=== PATIENT | female | born 1955 | race Caucasian/White ===

== ENCOUNTER → 2016-12-04 | Outpatient (CLI) | payer BC ==
--- NOTE | 2016-12-05 11:25 | MM ---
Reason for exam: screening (asymptomatic). Last mammogram was performed 2 years and 8 months ago. History: Patient is postmenopausal. Took estrogen for 2 years 7 months. Took progesterone for 2 years 7 months. Physical Findings: A clinical breast exam by your physician is recommended on an annual basis and results should be correlated with mammographic findings. MG Screening Mammo w CAD Bilateral CC and MLO view(s) were taken. Prior study comparison: April 04, 2014, bilateral MG screening mammo w CAD. September 21, 2012, mammogram, performed at [facility]. The breast tissue is heterogeneously dense. This may lower the sensitivity of mammography. Finding: There are typically benign dystrophic, round calcifications in the left breast. Developing asymmetry left middle depth inferior aspect. ASSESSMENT: Incomplete: need additional imaging evaluation, BI-RAD 0 RECOMMENDATION: Special view mammogram of the left breast. [facility] will attempt to contact patient to return for supplemental views.
== END | disposition home or self-care (01) ==
LOC: RADMAMWWP 16:41
PROVIDERS: ATTEND Family Medicine
DX: Z12.31 Encounter for screening mammogram for malignant neoplasm of breast (principal)

== ENCOUNTER → 2016-12-10 | Outpatient (CLI) | payer BC ==
--- NOTE | 2016-12-10 10:40 | MM ---
Reason for exam: additional evaluation requested from abnormal screening. Last mammogram was performed less than 1 month ago. History: Patient is postmenopausal. Took estrogen for 2 years 7 months. Took progesterone for 2 years 7 months. Physical Findings: Nurse did not find any significant physical abnormalities on exam. MG Work Up Mamm w CAD LT Spot compression CC, spot compression MLO, and ML view(s) were taken of the left breast. Prior study comparison: December 04, 2016, bilateral MG screening mammo w CAD. April 04, 2014, bilateral MG screening mammo w CAD. The breast tissue is heterogeneously dense. This may lower the sensitivity of mammography. Asymmetric nodular density persists on ML/MLO views, 6.5cm from nipple. Ultrasound is recommended. These results were verbally communicated with the patient and result sheet given to the patient on 12/10/16. ASSESSMENT: Incomplete: need additional imaging evaluation, BI-RAD 0 RECOMMENDATION: Ultrasound of the left breast.
--- NOTE | 2016-12-10 10:43 | USB ---
Reason for exam: additional evaluation requested from abnormal screening. History: Patient is postmenopausal. Took estrogen for 2 years 7 months. Took progesterone for 2 years 7 months. US Breast Workup Limited LT Left breast ultrasound demonstrates no cystic or solid lesion seen. No abnormality seen on ultrasound however given mammographic appearance tissue biopsy is recommended. These results were verbally communicated with the patient and result sheet given to the patient on 12/10/16. ASSESSMENT: Suspicious, BI-RAD 4 RECOMMENDATION: Stereotactic core biopsy of the left breast. Called Dr. Chambers with mammographic findings and has scheduled an appointment for the patient for 01/08/17 at 4:[address] Prado. Biposy scheduled for 12/18/16 at 10:00. PRELIMINARY REPORT CALLED AND FAXED TO DR. PRADO ON 12/10/16.
== END | disposition home or self-care (01) ==
LOC: RADMAMWWP 07:40
PROVIDERS: ATTEND Family Medicine
DX: R92.8 Other abnormal and inconclusive findings on diagnostic imaging of breast (principal)
CPT/HCPCS: 76642; G0206

== ENCOUNTER → 2016-12-18 | Day surgery (SDC) | payer BC ==
[2016-12-18 09:56] VITALS: BP 105/67; PULSE 68; RESP 16; TEMP 97.5; BMI 34.3
--- NOTE | 2016-12-18 12:24 | MM ---
EXAMINATION TYPE: MG discontinued stereo core LT DATE OF EXAM: 12/18/2016 COMPARISON: Mammogram December 10, 2016 and older studies. CLINICAL HISTORY: Abnormal mammogram TECHNIQUE: Stereotactic guided core biopsy of left breast. FINDINGS: The procedure of stereotactic guided core biopsy was explained to the patient. Benefits, a lternatives, and risks were discussed. An informed consent was then obtained. Case is reviewed prior to procedure. Preprocedure medication for anxiety was given. Lesion is not see n on CC or spot CC views. There is possible lesion on true lateral and MLO views. The lateral approac h had to be attempted. Multiple attempts to localize the lesion were performed, area of concern dispe rsed on spot imaging. It was explained to patient that no suspicious lesion persisted to warrant biop sy currently. This was pretty confident based on negative ultrasound and not definitive lesion seen o n background of dense tissue on mammogram. Patient was agreeable to cancel biopsy and do short-term d iagnostic follow-up. IMPRESSION: UNSUCCESSFUL, UNCOMPLICATED ATTEMPTED STEREOTACTIC GUIDED CORE BIOPSY OF AREA OF CONCERN IN THE LEFT BREAST. BI-RADS 3 PROBABLE BENIGN FINDINGS. RECOMMENDATION: PRECAUTIONARY 6 MONTH FOLLOW-UP DIAGNOSTIC LEFT BREAST MAMMOGRAM.
== END ==
LOC: RADMAMWWP 09:34
PROVIDERS: ATTEND Surgery
DX: R92.8 Other abnormal and inconclusive findings on diagnostic imaging of breast (principal); Z53.8 Procedure and treatment not carried out for other reasons

== ENCOUNTER 2016-12-20 08:28 | Day surgery (SDC) | payer BC ==
[2016-12-18 14:53] VITALS: BMI 36.0
[~2016-12-20 08:28] MED LIST: LACTATED RINGERS 1,000 ML IV SCH; LIDOCAINE 1% 20 ML VIAL (10MG/ML) FOR IV START INTRADERMA PRN
[2016-12-20 08:55] VITALS: RESP 16; TEMP 97.9
[2016-12-20] MEDS ORDERED: PROPOFOL 10 MG/ML 20 ML VIAL IV ONE (09:59)
--- NOTE | 2016-12-20 10:18 | P.PCN ---
Date of Procedure: 12/20/16 Procedure(s) Performed: BRIEF HISTORY: Patient is a 61-year-old [place] female, scheduled for an elective colonoscopy as a part of evaluation of prior history of colon polyps. PROCEDURE PERFORMED: Colonoscopy with snare polypectomy. PREOPERATIVE DIAGNOSIS: History of Colon polyps. IV sedation per Anesthesia. PROCEDURE: After informed consent was obtained, the patient, was brought into the endoscopy unit. IV sedation was administered by Anesthesia under continuous monitoring. Digital rectal examination was normal. Initially the Olympus CF- 160 flexible video colonoscope was then inserted in the rectum, gradually advanced into the cecum without any difficulty. Careful examination was performed as the scope was gradually being withdrawn. Ileocecal valve and the appendiceal orifice were visualized and appeared normal. Prep was excellent. Mucosa of the cecum, ascending colon, transverse colon, descending colon, sigmoid colon, and rectum appeared normal. 5 mm descending colon polyp seen which was removed by snare polypectomy. Scattered sigmoid diverticulosis noted. Retroflexion was performed in the rectum and no lesions were seen. The patient tolerated the procedure well. IMPRESSION: 5 mm descending colon polyp status post polypectomy Scattered sigmoid diverticulosis. RECOMMENDATIONS: Findings of this examination were discussed with the patient as well as a family. She was advised to follow with the biopsy results. If the biopsy shows a tubular adenoma she can have a repeat colonoscopy in 5 years
[2016-12-20 10:38] VITALS: BP 123/70; PULSE 61
== END 2016-12-20 10:57 | disposition home or self-care (01) ==
LOC: ORWHC2ENDO 08:28
PROVIDERS: ATTEND Internal Medicine Gastroenterology
DX: Z12.11 Encounter for screening for malignant neoplasm of colon (principal); Z86.010 Personal history of colon polyps; K57.30 Diverticulosis of large intestine without perforation or abscess without bleeding; J45.909 Unspecified asthma, uncomplicated; F39 Unspecified mood [affective] disorder; Z79.899 Other long term (current) drug therapy; Z88.5 Allergy status to narcotic agent; Z88.0 Allergy status to penicillin; Z88.8 Allergy status to other drugs, medicaments and biological substances; Z87.891 Personal history of nicotine dependence
CPT/HCPCS: 88305; 45385; J2704

== ENCOUNTER → 2022-10-18 | Outpatient (CLI) | payer BC ==
[2022-10-19 06:21] LABS: Alternaria alternata IgE <0.10 kU/L; Aspergillus fumagatus IgE <0.10 kU/L; Birch IgE <0.10 kU/L; Cat Epith & Dander IgE <0.10 kU/L; Cladosporian herbarum IgE <0.10 kU/L; Cockroach IgE <0.10 kU/L; Dermato. farinae IgE <0.10 kU/L; Dog Dander IgE <0.10 kU/L; Maple (Box Elder) IgE <0.10 kU/L; Oak IgE <0.10 kU/L; Ragweed,Common IgE <0.10 kU/L
== END | disposition home or self-care (01) ==
LOC: LABWHC1 15:02
PROVIDERS: ATTEND Otolaryngology
DX: J30.89 Other allergic rhinitis (principal)
CPT/HCPCS: 36415; 82785; 86003

== ENCOUNTER 2024-01-12 18:21 | Emergency (ER) | payer MEDICARE ==
--- NOTE | 2024-01-12 18:43 | ED ---
General Adult HPI - General Source: patient, RN notes reviewed Mode of arrival: wheelchair Limitations: no limitations <Amina Holm - Last Filed: 01/12/24 18:42> <Corie Real - Last Filed: 01/13/24 03:16> - General Chief complaint: Psychiatric Symptoms Stated complaint: Weakness Time Seen by Provider: 01/12/24 18:38 - History of Present Illness Initial comments: Quick [id number] female history of anxiety depression presents emergency department with severe anxiety. States that she has been taking 0.25 grams of Xanax and as needed throughout the day with no relief in symptoms. States that she is shaky and severely depressed. (Amina Holm) 68-year-old female presents emergency department reporting severe anxiety. States that she has a history of anxiety and follows with her primary care doctor. She has her on Xanax and Prozac. She states that ever since she start ed Prozac in November that her symptoms have gotten progressively worse. Because of that she wants to come off of the Prozac and her primary care doctor has been tapering her off of it. Over the past 5 days she has had to take Xanax because her depressive thoughts have been so significant. She states that the "depressive pain is so bad". States that she cannot take it anymore. Reports that she does not want to go home because she does not feel safe with herself. She admits to shakiness, nausea. Does report that Xanax does help her symptoms. She has never been hospitalized. Denies homicidal ideations. No other alleviating, precipitating or modifying factors (Corie Real) - Related Data Home Medications Medication Instructions Recorded Confirmed ALPRAZolam [Xanax] 1 tab PO Q12HR 12/11/16 12/18/16 Fexofenadine HCl [[place]ie Allergy] 1 tab PO DAILY 12/11/16 12/18/16 Fluticasone Nasal [place] [Flonase 50 mcg NASAL DAILY 12/11/16 12/18/16 Nasal [place]] Previous Rx's Medication Instructions Recorded ALPRAZolam [Xanax] 0.5 mg PO TID PRN #9 tablet 01/13/24 Allergies Allergy/AdvReac Type Severity Reaction Status Date / Time albuterol Allergy Anaphylaxis Verified 01/12/24 18:29 codeine Allergy Swelling Verified 12/20/16 08:47 corn Allergy Anaphylaxis Verified 01/12/24 18:29 Penicillins Allergy Anaphylaxis Verified 12/20/16 08:47 tetracycline Allergy Anaphylaxis Verified 01/12/24 18:29 DUST Allergy Unknown Uncoded 12/18/16 14:45 Review of Systems ROS Other: All systems not noted in ROS Statement are negative. <Amina Holm - Last Filed: 01/12/24 18:42> ROS Other: All systems not noted in ROS Statement are negative. <Kishan Realah Isaiah - Last Filed: 01/13/24 03:16> ROS Statement: Those systems with pertinent positive or pertinent negative responses have been documented in the HPI. Past Medical History Past Medical History: Asthma Additional Past Medical History / Comment(s): HX MICHAEL CLARK, STATES HAS HAD 4 ANAPHYLACTIC EPISODES IN PAST YEAR-ALLERGY TO MANY PRESERVATIVES PER PT. NO CURRENT MEDS FOR ASTHMA PER PT History of Any Multi-Drug Resistant Organisms: None Reported Past Surgical History: Cholecystectomy, Hysterectomy Additional Past Surgical History / Comment(s): URETER REPAIR SECONDARY TO HYSTERECTOMY. Past Anesthesia/Blood Transfusion Reactions: No Reported Reaction Past Psychological History: Anxiety, Depression Past Alcohol Use History: None Reported Past Drug Use History: None Reported <Amina Holm - Last Filed: 01/12/24 18:42> General Exam Limitations: no limitations <Amina Holm - Last Filed: 01/12/24 18:42> General appearance: alert, anxious, in distress Head exam: Present: atraumatic, normocephalic, normal inspection Eye exam: Present: normal appearance, PERRL, EOMI. Absent: scleral icterus, conjunctival injection, periorbital swelling ENT exam: Present: normal exam, mucous membranes moist Neck exam: Present: normal inspection. Absent: tenderness, meningismus, lymphadenopathy Respiratory exam: Present: normal lung sounds bilaterally. Absent: respiratory distress, wheezes, rales, rhonchi, stridor Cardiovascular Exam: Present: regular rate, normal rhythm, normal heart sounds. Absent: systolic murmur, diastolic murmur, rubs, gallop, clicks GI/Abdominal exam: Present: soft, normal bowel sounds. Absent: distended, tenderness, guarding, rebound, rigid Extremities exam: Present: normal inspection, full ROM, normal capillary refill. Absent: tenderness, pedal edema, joint swelling, calf tenderness Back exam: Present: normal inspection Neurological exam: Present: alert, oriented X3, CN II-XII intact Psychiatric exam: Present: anxious, suicidal ideation Skin exam: Present: warm, dry, intact, normal color. Absent: rash <Corei Real - Last Filed: 01/13/24 03:16> - General Exam Comments Initial Comments: Visual Physical Exam Vital signs reviewed General: Well-appearing, nontoxic, no acute distress. Head: Normocephalic, atraumatic Eyes: PERRLA, EOMI ENT: Airway patent Chest: Nonlabored breathing Skin: No visual rash, normal skin tone Neuro: Alert and oriented 3 Musculoskeletal: No gross abnormalities (Amina Holm) Course Vital Signs 01/12/24 01/13/24 18:25 01:55 Temperature 98.6 F 98.4 F Pulse Rate 88 86 Respiratory 16 18 Rate Blood Pressure 135/87 136/88 O2 Sat by Pulse 98 97 Oximetry Medical Decision Making <Amina Holm - Last Filed: 01/12/24 18:42> <Corie Real - Last Filed: 01/13/24 03:16> - Medical Decision Making I completed the quick note portion of this chart signed Amina Holm PA-C (Amina Holm) Was pt. sent in by a medical professional or institution (KYLE Garcia, QUICK PRINT OPERATOR, urgent care, hospital, or penitentiary...) When possible be specific @ -No Did you speak to anyone other than the patient for history (EMS, parent, family, police, friend...)? What history was obtained from this source @ -Spoke with the for history Did you review nursing and triage notes (agree or disagree)? Why? @ -I reviewed and agree with nursing and triage notes Were old charts reviewed (outside hosp., previous admission, EMS record, old EKG, old radiological studies, urgent care reports/EKG's, penitentiary records)? Report findings @ -No old charts were reviewed Differential Diagnosis (chest pain, altered mental status, abdominal pain women, abdominal pain men, vaginal bleeding, weakness, fever, dyspnea, syncope, headache, dizziness, GI bleed, back pain, seizure, CVA, palpatations, mental health, musculoskeletal)? @ -Differential Mental Health Depression, anxiety, bipolar, psychosis, schizophrenia, borderline personality, situational depression, adjustment disorder, behavioral disorder, brain tumor, malingering, substance abuse, encephalopathy, medication reaction, dementia, hypothyroidism, degenerative neurologic disorder, lupus.... This is not meant to be all-inclusive list EKG interpreted by me (3pts min.). @ -Not done X-rays interpreted by me (1pt min.). @ -None done CT interpreted by me (1pt min.). @ -None done U/S interpreted by me (1pt. min.). @ -None done What testing was considered but not performed or refused? (CT, X-rays, U/S, labs)? Why? @ -None What meds were considered but not given or refused? Why? @ -None Did you discuss the management of the patient with other professionals (professionals i.e. , PA, QUICK PRINT OPERATOR, lab, RT, psych nurse, social professionals, ramp attendant, teacher, air antisubmarine officer, case liner)? Give summary @ -Spoke with the EPS nurse who does evaluate the patient Was smoking cessation discussed for >3mins.? @ -No Was critical care preformed (if so, how long)? @ -No Were there social determinants of health that impacted care today? How? (Homelessness, low income, unemployed, alcoholism, drug addiction, transportation, low edu. Level, literacy, decrease access to med. care, care home, rehab)? @ -No Was there de-escalation of care discussed even if they declined (Discuss DNR or withdrawal of care, Hospice)? DNR status @ -No What co-morbidities impacted this encounter? (DM, HTN, Smoking, COPD, CAD, Cancer, CVA, ARF, Chemo, Hep., AIDS, mental health diagnosis, sleep apnea, morbid obesity)? @ -Anxiety Was patient admitted / discharged? Hospital course, mention meds given and route, prescriptions, significant lab abnormalities, going to OR and other pertinent info. @ -Upon arrival patient seen and evaluated in room 18. Thorough history and physical exam was performed. EPS does evaluate the patient. Does not feel the patient would fare well on the mental health floor as this would likely exacerbate her symptoms. Patient did respond to the Xanax well. I will write her prescription for stronger dose. She is to follow-up with her primary care doctor for further management and return for any new or worsening symptoms. Patient is agreeable if her symptoms do not improve that she will come back. Undiagnosed new problem with uncertain prognosis? @ -No Drug Therapy requiring intensive monitoring for toxicity (Heparin, Nitro, Insulin, Cardizem)? @ -No Were any procedures done? @ -No Diagnosis/symptom? @ -Acute anxiety/depression Acute, or Chronic, or Acute on Chronic? @ -Acute on chronic Uncomplicated (without systemic symptoms) or Complicated (systemic symptoms)? @ -Complicated Side effects of treatment? @ -No Exacerbation, Progression, or Severe Exacerbation? @ -No Poses a threat to life or bodily function? How? (Chest pain, [place], [place], pneumonia, PE, COPD, DKA, ARF, appy, cholecystitis, CVA, Diverticulitis, Homicidal, Suicidal, threat to staff... and all critical care pts) @ -No (Corie Real) Disposition <Amina Holm - Last Filed: 01/12/24 18:42> Is patient prescribed a controlled substance at d/c from ED?: Yes When asked, does pt state using other controlled substances?: No If prescribed controlled substance>3 days was MAPS reviewed?: Prescribed <3 Days Time of Disposition: 01:35 <Corie Real - Last Filed: 01/13/24 03:16> Clinical Impression: Acute anxiety Disposition: HOME SELF-CARE Condition: Stable Instructions (If sedation given, give patient instructions): Anxiety (ED) Additional Instructions: Please use the Xanax sparingly as needed up to 3 times a day. Follow-up with your doctor and return for any new or worsening symptoms Prescriptions: ALPRAZolam [Xanax] 0.5 mg PO TID PRN #9 tablet PRN Reason: Anxiety Referrals: Beverly Morel DO [Primary Care Provider] - 1-2 days
[2024-01-12] MEDS ORDERED: LORazepam 1 MG TAB PO STA (22:26)
[2024-01-12] MEDS: ALPRAZolam 0.5 MG TAB PO STA (22:59)
[2024-01-13] MEDS: ALPRAZolam 0.5 MG TAB PO STA (01:54)
[2024-01-13 01:57] VITALS: BP 136/88; PULSE 86; RESP 18; TEMP 98.4
== END 2024-01-13 01:56 | disposition home or self-care (01) ==
LOC: EC 18:21
CPT/HCPCS: 82075; 99285

== ENCOUNTER → 2024-01-15 | Outpatient (CLI) | payer MEDICARE ==
[2024-01-15 16:36] LABS: Basophils # (A) 0.05 X 10*3/uL (0.00-0.10); Eosinophils # (A) 0.04 X 10*3/uL (0.04-0.35); Eosinophils % (A) 0.8 %; HCT 46.2 % (37.2-46.3); HGB 14.7 g/dL (12.0-15.0); Lymphocytes # (A) 0.91 X 10*3/uL (0.90-5.00); Lymphocytes % (A) 18.2 %; MCH 28.9 pg (27.0-32.0); MCHC 31.8 g/dL (32.0-37.0); MCV 90.9 FL (80.0-97.0); Mean Platelet Volume 10.1 FL (9.5-12.2); Monocytes # (A) 0.45 X 10*3/uL (0.20-1.00); NRBC Per 100 WBC 0 X 10*3/uL (0.00-0.01); Neutrophils # (A) 3.53 X 10*3/uL (1.80-7.70); Neutrophils % (A) 70.8 %; Platelet Count 324 X 10*3/uL (140-440); RBC 5.08 X 10*6/uL (4.10-5.20); RDW 13.3 % (11.5-14.5); WBC 4.99 X 10*3/uL (4.50-10.00)
[2024-01-15 17:11] LABS: ALT 13 U/L (8-44); AST 15 U/L (13-35); Albumin 4.1 g/dL (3.8-4.9); Albumin/Globulin Ratio 1.86 Ratio (1.60-3.17); Alkaline Phosphatase 73 U/L (41-126); Blood Urea Nitrogen 13.3 mg/dL (9.0-27.0); Calcium 9.3 mg/dL (8.7-10.3); Carbon Dioxide 27.1 mmol/L (21.6-31.8); Chloride 104 mmol/L (96-109); Globulin 2.2 g/dL (1.6-3.3); Glucose 101 mg/dL (70-110); Potassium 4.5 mmol/L (3.5-5.5); Sodium 141 mmol/L (135-145); Total Bilirubin 0.3 mg/dL (0.3-1.2); Total Protein 6.3 g/dL (6.2-8.2)
== END | disposition home or self-care (01) ==
LOC: LABWHC1 11:43
PROVIDERS: ATTEND Family Medicine
DX: F41.1 Generalized anxiety disorder (principal)
CPT/HCPCS: 36415; 80053; 82306; 82607; 83036; 83735; 84443; 85025

== ENCOUNTER 2024-02-02 23:17 | Emergency (ER) | payer MEDICARE ==
[2024-02-02 23:21] VITALS: RESP 18; TEMP 97.7
[2024-02-02] MEDS: diphenhydrAMINE 50 MG/ML 1 ML VIAL IVP STA (23:53)
[2024-02-02] MEDS: FAMOTIDINE 20 MG/2 ML VIAL IV STA (23:54)
[2024-02-02] MEDS: ALPRAZolam 0.25 MG TAB PO STA (23:55)
--- NOTE | 2024-02-03 01:23 | ED ---
Allergic Reaction HPI - General Chief complaint: Allergic Reaction Stated complaint: Allergic Reaction Time Seen by Provider: 02/02/24 23:24 Source: patient Mode of arrival: ambulatory Limitations: no limitations - History of Present Illness Initial Comments: This patient is a 68-year-old woman presents with complaint that she believes she is having a reaction to taking new antidepressant. Patient states that she was given Zoloft for some mild anxiety and depression. She denies suicidal ideation. She states that after she took this she started having severe anxiety. She has tingling around her mouth and fingertips. She has tremor. No chest pain. No nausea or vomiting. No rash MD Complaint: other -: hour(s) Exposure: medication Symptoms: other Severity: moderate Treatment Prior to Arrival: none Previous Allergy History: none - Related Data Home Medications Medication Instructions Recorded Confirmed ALPRAZolam [Xanax] 1 tab PO Q12HR 12/11/16 12/18/16 Fexofenadine HCl [Dixie Allergy] 1 tab PO DAILY 12/11/16 12/18/16 Fluticasone Nasal Tensed [Flonase 50 mcg NASAL DAILY 12/11/16 12/18/16 Nasal Tensed] Previous Rx's Medication Instructions Recorded ALPRAZolam [Xanax] 0.5 mg PO TID PRN #9 tablet 01/13/24 Allergies Allergy/AdvReac Type Severity Reaction Status Date / Time albuterol Allergy Anaphylaxis Verified 02/02/24 23:21 codeine Allergy Swelling Verified 02/02/24 23:21 corn Allergy Anaphylaxis Verified 02/02/24 23:21 fluoxetine [From Prozac] Allergy Unknown Verified 02/02/24 23:21 hydroxyzine Allergy Unknown Verified 02/02/24 23:21 Penicillins Allergy Anaphylaxis Verified 02/02/24 23:21 tetracycline Allergy Anaphylaxis Verified 02/02/24 23:21 DUST Allergy Unknown Uncoded 02/02/24 23:21 Review of Systems ROS Statement: Those systems with pertinent positive or pertinent negative responses have been documented in the HPI. ROS Other: All systems not noted in ROS Statement are negative. Constitutional: Denies: fever, chills Eyes: Denies: eye discharge ENT: Denies: congestion Respiratory: Denies: cough, dyspnea Cardiovascular: Denies: chest pain, palpitations Gastrointestinal: Denies: abdominal pain, nausea, vomiting, diarrhea Skin: Denies: rash Neurological: Denies: headache, weakness Psychiatric: Reports: anxiety Past Medical History Past Medical History: Asthma Additional Past Medical History / Comment(s): HX MICHAEL CLARK, STATES HAS HAD 4 ANAPHYLACTIC EPISODES IN PAST YEAR-ALLERGY TO MANY PRESERVATIVES PER PT. NO CURRENT MEDS FOR ASTHMA PER PT History of Any Multi-Drug Resistant Organisms: None Reported Past Surgical History: Cholecystectomy, Hysterectomy Additional Past Surgical History / Comment(s): URETER REPAIR SECONDARY TO HYSTERECTOMY. Past Anesthesia/Blood Transfusion Reactions: No Reported Reaction Past Psychological History: Anxiety, Depression Smoking Status: Never smoker Past Alcohol Use History: None Reported Past Drug Use History: None Reported General Exam Limitations: no limitations General appearance: alert, anxious Head exam: Present: atraumatic, normocephalic Eye exam: Present: normal appearance. Absent: scleral icterus, conjunctival injection ENT exam: Present: normal oropharynx Neck exam: Present: normal inspection Respiratory exam: Present: normal lung sounds bilaterally. Absent: respiratory distress, wheezes, rales, rhonchi, stridor, accessory muscle use Cardiovascular Exam: Present: regular rate, normal rhythm, normal heart sounds. Absent: systolic murmur, diastolic murmur, rubs, gallop GI/Abdominal exam: Present: soft. Absent: distended, tenderness, guarding, rebound, rigid, mass Extremities exam: Present: normal inspection, normal capillary refill. Absent: pedal edema, calf tenderness Back exam: Present: normal inspection Neurological exam: Present: alert Psychiatric exam: Present: anxious Skin exam: Present: warm, dry, intact, normal color. Absent: rash Course Vital Signs 02/02/24 02/03/24 02/03/24 23:18 00:01 02:05 Temperature 97.7 F Pulse Rate 74 77 69 Respiratory 18 18 18 Rate Blood Pressure 138/82 133/90 110/69 O2 Sat by Pulse 100 97 99 Oximetry Medical Decision Making - Medical Decision Making Was pt. sent in by a medical professional or institution (, PA, FACSIMILE OPERATOR, urgent care, hospital, or half-way...) When possible be specific @ -[No] Did you speak to anyone other than the patient for history (EMS, parent, family, police, friend...)? What history was obtained from this source @ -[No] Did you review nursing and triage notes (agree or disagree)? Why? @ -[I reviewed and agree with nursing and triage notes] Were old charts reviewed (outside hosp., previous admission, EMS record, old EKG, old radiological studies, urgent care reports/EKG's, half-way records)? Report findings @ -[No old charts were reviewed] Differential Diagnosis (chest pain, altered mental status, abdominal pain women, abdominal pain men, vaginal bleeding, weakness, fever, dyspnea, syncope, headache, dizziness, GI bleed, back pain, seizure, CVA, palpatations, mental health, musculoskeletal)? @ -[Differential Mental Health Depression, anxiety, bipolar, psychosis, schizophrenia, borderline personality, situational depression, adjustment disorder, behavioral disorder, brain tumor, malingering, substance abuse, encephalopathy, medication reaction, dementia, hypothyroidism, degenerative neurologic disorder, lupus.... This is not meant to be all-inclusive list EKG interpreted by me (3pts min.). @ -[As above] X-rays interpreted by me (1pt min.). @ -[None done] CT interpreted by me (1pt min.). @ -[None done] U/S interpreted by me (1pt. min.). @ -[None done] What testing was considered but not performed or refused? (CT, X-rays, U/S, labs)? Why? @ -[None] What meds were considered but not given or refused? Why? @ -[None] Did you discuss the management of the patient with other professionals (professionals i.e. , PA, FACSIMILE OPERATOR, lab, RT, psych nurse, social work msw, radio repair teacher, teacher, space operations officer, case manager specialist)? Give summary @ -[No] Was smoking cessation discussed for >3mins.? @ -[No] Was critical care preformed (if so, how long)? @ -[No] Were there social determinants of health that impacted care today? How? (Homelessness, low income, unemployed, alcoholism, drug addiction, transportation, low edu. Level, literacy, decrease access to med. care, retirement, rehab)? @ -[No] Was there de-escalation of care discussed even if they declined (Discuss DNR or withdrawal of care, Hospice)? DNR status @ -[No] What co-morbidities impacted this encounter? (DM, HTN, Smoking, COPD, CAD, Cancer, CVA, ARF, Chemo, Hep., AIDS, mental health diagnosis, sleep apnea, morbid obesity)? @ -[None] Was patient admitted / discharged? Hospital course, mention meds given and route, prescriptions, significant lab abnormalities, going to OR and other pertinent info. @ -[Patient is a 68-year-old woman here with concerns that she is having allergic reaction. She did request medication for allergic reaction however this seems much more likely to be side effect of medication. The patient is observed here and did begin to feel better and requested to go home. The patient states she will not be taking further Zoloft. We discussed appropriate further care as well as return parameters Undiagnosed new problem with uncertain prognosis? @ -[No] Drug Therapy requiring intensive monitoring for toxicity (Heparin, Nitro, Insulin, Cardizem)? @ -[No] Were any procedures done? @ -[No] Diagnosis/symptom? @ -[Acute medication side effect Acute, or Chronic, or Acute on Chronic? @ -[Acute Uncomplicated (without systemic symptoms) or Complicated (systemic symptoms)? @ -[Uncomplicated Side effects of treatment? @ -[No] Exacerbation, Progression, or Severe Exacerbation? @ -[No] Poses a threat to life or bodily function? How? (Chest pain, [place], MA, pneumonia, PE, COPD, DKA, ARF, appy, cholecystitis, CVA, Diverticulitis, Homicidal, Suicidal, threat to staff... and all critical care pts) @ -[No] Disposition Clinical Impression: Acute anxiety, Allergic reaction to drug Disposition: HOME SELF-CARE Condition: Good Instructions (If sedation given, give patient instructions): General Allergic Reaction (ED) Is patient prescribed a controlled substance at d/c from ED?: No Referrals: Beverly Morel DO [Primary Care Provider] - 1-2 days
[2024-02-03] MEDS: FAMOTIDINE 20 MG TAB PO STA (01:58)
[2024-02-03] MEDS: diphenhydrAMINE 50 MG CAP PO STA (01:58)
[2024-02-03 02:05] VITALS: BP 110/69; PULSE 69
== END 2024-02-03 02:05 | disposition home or self-care (01) ==
LOC: EC 23:17
DX: F41.9 Anxiety disorder, unspecified (principal); T43.225A Adverse effect of selective serotonin reuptake inhibitors, initial encounter; Z88.0 Allergy status to penicillin; Z88.5 Allergy status to narcotic agent; Z91.018 Allergy to other foods; Z91.09 Other allergy status, other than to drugs and biological substances; Z88.8 Allergy status to other drugs, medicaments and biological substances
CPT/HCPCS: 99284; 96374; 96375; J1200; J3490